=== PATIENT | male | born 1955 ===

== ENCOUNTER 2023-10-01 13:33 | Outpatient (AMB) | payer MEDICARE, SELFPAY ==
--- NOTE | 2023-10-01 13:53 | MHC.PC.OV ---
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 Required: No Allergies No Known Allergies Allergy (Verified 10/01/23 13:54) Medication List - Last Reconciled 10/01/23 by Sita Norton MD folic acid PO hydrocodone-acetaminophen 5-300 mg 1 tab PO TID PRN 28 days lisinopril mg PO methotrexate sodium mg PO Fall risk assessment: No Falls in past year Last assessed Fall Risk: 10/01/23 Dental Screening Dental Screen Date: 10/01/23 Did you have a dental visit in the last 12 months?: No Did you have a dental problem in the last 6 months where you did not have access to dental care?: No Was dental information given to patient?: No (pt declined) HPI HPI Comments History of Present Illness Details The patient is a 68 year old male with a past medical history of psoriatic arthritis, psoriasis, and hypertension presenting for follow up Psoriatic arthritis. Follows with Dr Henriquez. On 10mg methotrexate once weeky (rheum), vicodin (pcp) and aleve prn. He is now retired and enjoying his time. Hypertension: on lisinopril. He denies chest pain, palpitations, increased lower extremity edema Preventive Refuses colonoscopy Refuses immunizations PFSH Medical History (Updated 10/03/23 @ 10:46 by Sita Norton MD) Psoriatic arthritis PMR (polymyalgia rheumatica) Obesity, Class I, BMI 30-34.9 Social History (Updated 10/01/23 @ 13:56 by Sheri Raines CMA) Housing: House Cigarettes Per Day: 1 Years Smoked: 19 e-Cigarette/Vaping Use: Never Used Second Hand Smoke Exposure: No service: No Current occupational status: retired Cognitive needs: No Hearing needs: No Vision needs: Yes (glasses) Questionnaire PHQ-9 Over the last 2 weeks, how often have you been bothered by any of the following problems? 1. Little interest or pleasure in doing things: not at all 2. Feeling down, depressed, or hopeless: not at all 3. Trouble falling or staying asleep, or sleeping too much: more than half the days 4. Feeling tired or having little energy: not at all 5. Poor appetite or overeating: not at all 6. Feeling bad about yourself - or that you are a failure or have let yourself or your family down: not at all 7. Trouble concentrating on things, such as reading the newspaper or watching television: not at all 8. Moving or speaking so slowly that other people could have noticed. Or the opposite - being so fidgety or restless that you have been moving around a lot more than usual: several days 9. Thoughts that you would be better off or of hurting yourself in some way: not at all Total score: 3 Depression Screening Interpretation: Negative (neg) Depression Screening Done: Yes 18169 - PHQ-9 Billing: Yes Source: Developed by Drs. Eric Lew, Nelda Zambrano, Shukri Johnson and colleagues, with an educational cosme from [employer]. Thrive Questionnaire Date Thrive assessed: 10/01/23 I am a: Parent/Caregiver What is your living situation today?: I have a steady place to live Within the past 12 months, did the food you bought not last and you didn't have the money to get more?: Never true Within the past 12 months, did you worry whether your food would run out before you got money to buy more?: Never true Do you have trouble paying for medicines?: No Do you have trouble getting transportation to medical appointments?: No Do you have trouble paying your heating and electricity bill?: No Do you have trouble taking care of your child, family member or friend?: No Do you have trouble with day-to-day activities such as bathing, preparing meals, shopping, managing finances, etc.?: No Are you currently unemployed and looking for a job?: No Are you interested in more education?: No Please select the resources that you would like help with: None Currently or been in a relationship where the following occur: no concerns reported THRIVE Score: 0 AUDIT C Alcohol Use Questionnaire (AUDIT-C) 1. How often do you have a drink containing alcohol?: Never 3. How often do you have six or more drinks on one occasion?: Never Total Score: 0 CLAIRE-7 AMB Questionnaire CLAIRE-7 Date CLAIRE - 7 assessed: 10/01/23 Feeling nervous, anxious, or on edge: 0 = Not at all Not being able to stop or control worryin = Not at all Worrying too much about different things: 0 = Not at all Trouble relaxin = Not at all Being so restless that it is hard to sit still: 0 = Not at all Becoming easily annoyed or irritable: 0 = Not at all Feeling afraid as if something awful might happen: 0 = Not at all Total CLAIRE-7 score (0-4 normal; 5-9 mild; 10-14 moderate; 15-21 severe): 0 Source: Developed by Drs. Eric Lew, Nelda Zambrano, Shukri Johnson and colleagues, with an educational cosme from [employer]. CLAIRE-7 Assessment Billing CLAIRE-7 Assessment Tool: CLAIRE-7 Assessment 36516 Review of Systems Const Details: see HPI Physical exam (Primary Care) Vital Signs: Last Vital Signs Temp 97.1 F 10/01/23 13:57 Pulse 97 10/01/23 13:57 Resp 14 10/01/23 13:57 BP 116/60 10/01/23 13:57 Pulse Ox 97 10/01/23 13:57 Oxygen Delivery Method Room Air 10/01/23 13:57 BMI result Body Mass Index 39.5 Tobacco/Smoking Status: Tobacco use Status e-Cigarette/Vaping Use Never Used 10/01/23 14:03 PHQ-9: PHQ-9 Score PHQ-9: Total score 3 10/01/23 15:40 Depression Screening Interpretation: Negative (neg) Thrive Assessment: Date of Thrive Assessment Date Thrive assessed 10/01/23 10/01/23 14:13 Currently or been in a relationship where the following occur: no concerns reported Const Other: PHYSICAL EXAM: GENERAL: Alert and oriented x 3. NAD EYES: EOMI. Anicteric. HENT: Moist mucous membranes. No scleral icterus. No cervical lymphadenopathy. LUNGS: Clear to auscultation bilaterally. CARDIOVASCULAR: Regular rate and rhythm. No murmur. No JVD. ABDOMEN: Soft, non-tender +bs EXTREMITIES: No edema. Non-tender. SKIN: No rashes or lesions. Warm. NEUROLOGIC: No focal neurological deficits. CN II-XII grossly intact PSYCHIATRIC: Cooperative. Appropriate mood and affect Assessment and Plan Assessment & Plan (1) PMR (polymyalgia rheumatica): Code(s): M35.3 - Polymyalgia rheumatica (2) Psoriatic arthritis: Comment: continue current medications. Continue rheumatology Code(s): L40.50 - Arthropathic psoriasis, unspecified (3) Hypertension: Code(s): I10 - Essential (primary) hypertension Orders: Orders Comprehensive Met. Panel 10/01/23 I10 - Essential (primary) hypertension, L40.50 - Arthropathic psoriasis, unspecified, M35.3 - Polymyalgia rheumatica, Z13.220 - Encounter for screening for lipoid disorders Prostate Specific Antigen 10/01/23 Z12.5 - Encounter for screening for malignant neoplasm of prostate, Z13.220 - Encounter for screening for lipoid disorders Complete Blood Count Auto Diff 10/01/23 I10 - Essential (primary) hypertension, L40.50 - Arthropathic psoriasis, unspecified, M35.3 - Polymyalgia rheumatica, Z13.220 - Encounter for screening for lipoid disorders Lipid Panel 10/01/23 I10 - Essential (primary) hypertension, L40.50 - Arthropathic psoriasis, unspecified, M35.3 - Polymyalgia rheumatica, Z13.220 - Encounter for screening for lipoid disorders Medications: New hydrocodone-acetaminophen 5-300 mg 1 tab PO TID PRN 84 tabs 0RF pain 28 days Coding Level of Care Code Tele Est Pt Level 4 (28440) Complex EM visit Add On G2211 Diagnoses PMR (polymyalgia rheumatica) M35.3 Psoriatic arthritis L40.50 Hypertension I10 Additional Codes CLAIRE-7 Assessment Billing - CLAIRE-7 Assessment Tool: CLAIRE-7 Assessment 04169 ([id number])
[2023-10-01 13:57] VITALS: BP 116/60; PULSE 97; RESP 14; TEMP 36.2; O2SAT 97; BMI 39.5
== END 2023-10-01 14:50 | disposition home or self-care (01) ==
PROVIDERS: PCP Internal Medicine; Visit Provider Internal Medicine
DX: M35.3 Polymyalgia rheumatica (principal); L40.50 Arthropathic psoriasis, unspecified; I10 Essential (primary) hypertension
CPT/HCPCS: 99214; G2211

== ENCOUNTER 2023-10-21 09:11 | Outpatient (REF) | payer MEDICARE, SELFPAY ==
[2023-10-21 11:40] LABS: Alanine Aminotransferase 30 U/L (0-40); Albumin Level 3.9 g/dL (3.5-5.0); Alkaline Phosphatase 57 U/L (39-117); Anion Gap 11 (12-20); Aspartate Amino Transferase 25 U/L (5-37); Bilirubin Total 0.5 mg/dL (0.0-1.0); Blood Urea Nitrogen 25 mg/dL (9-16); Calcium 9.3 mg/dL (8.4-10.2); Carbon Dioxide 25 mmol/L (22-29); Chloride 108 mmol/L (96-108); Cholesterol 235 mg/dL (<200); Estimated Glomerular Filt Rate > 60; Glucose Random 103 mg/dL (60-115); HDL Cholesterol 39 mg/dL (>40); LDL Cholesterol Calculated 175 mg/dL (<100); Potassium 4.2 mmol/L (3.3-5.1); Sodium 140 mmol/L (135-145); Total Protein 7.4 g/dL (6.5-8.0); Triglycerides 106 mg/dL (<150)
[2023-10-21 11:41] LABS: Alanine Aminotransferase 30 U/L (0-40); Albumin Level 3.9 g/dL (3.5-5.0); Alkaline Phosphatase 57 U/L (39-117); Anion Gap 9 (12-20); Aspartate Amino Transferase 25 U/L (5-37); Bilirubin Total 0.5 mg/dL (0.0-1.0); Blood Urea Nitrogen 25 mg/dL (9-16); C Reactive Protein 2.05 mg/dL (< or = 0.50); Calcium 9.3 mg/dL (8.4-10.2); Carbon Dioxide 27 mmol/L (22-29); Chloride 107 mmol/L (96-108); Estimated Glomerular Filt Rate > 60; Glucose Random 103 mg/dL (60-115); Potassium 4.2 mmol/L (3.3-5.1); Sodium 139 mmol/L (135-145); Total Protein 7.2 g/dL (6.5-8.0)
[2023-10-21 11:42] LABS: MANUAL DIFF FLAG NO
[2023-10-21 11:43] LABS: Basophils Percent Auto 0.8 % (0-2); Eosinophils Absolute Auto 0.2 X10*3/uL (0.0-0.4); Eosinophils Percent Auto 3.2 % (0-4); Hemoglobin 12.6 g/dl (14.0-18.0); Imm Gran Abs Auto 0.02 X10*3/uL (0.00-0.03); Imm Gran Pct Auto 0.4 % (0.0-0.4); Lymphocytes Absolute Auto 0.9 X10*3/uL (1.2-4.9); Lymphocytes Percent Auto 19.2 % (20-40); Mean Corpuscular HGB Conc 32.3 g/dl (31.0-36.0); Mean Corpuscular Hemoglobin 30.2 pg (27.0-33.0); Mean Corpuscular Volume 93.5 fL (80.0-98.0); Mean Platelet Volume 10.8 fL (9.4-12.4); Monocytes Absolute Auto 0.5 X10*3/uL (0.1-1.2); Monocytes Percent Auto 9.9 % (2-11); Neutrophils Absolute Auto 3.2 x10*3/uL (2.0-8.3); Neutrophils Percent Auto 66.5 % (45-73); Platelet Count 299 X10*3/uL (160-400); Red Blood Count 4.17 X10*6/uL (4.60-5.80); Red Cell Distribution Width 14.8 % (11.0-16.0); White Blood Count 4.7 X10*3/uL (4.8-10.8)
[2023-10-21 12:00] LABS: Prostate Specific Antigen 0.41 ng/mL (<0.05-4.0)
[2023-10-21 12:42] LABS: Erythrocyte Sedimentation Rate 44 MM/HR (0-15)
== END 2023-10-21 09:12 | disposition home or self-care (01) ==
LOC: HO.WFDLDS 09:11
PROVIDERS: Internal Medicine; Visit Provider Internal Medicine
DX: L40.50 Arthropathic psoriasis, unspecified (principal); M35.3 Polymyalgia rheumatica; I10 Essential (primary) hypertension; Z13.220 Encounter for screening for lipoid disorders; Z12.5 Encounter for screening for malignant neoplasm of prostate
CPT/HCPCS: 36415; 80053; 80061; 84153; 85025; 85652; 86140

== ENCOUNTER → 2024-02-11 15:53 | Outpatient (BNVA) | payer MEDICARE, SELFPAY | PROVIDERS: PCP Internal Medicine; Visit Provider Internal Medicine ==

== ENCOUNTER → 2024-02-11 15:53 | Outpatient (AMB) | payer MEDICARE, SELFPAY ==
--- NOTE | 2024-02-11 15:42 | A.OFFPC_ITS ---
Intake Visit Reasons: Follow Up ~[phone] Intake Note: Follow up Allergies No Known Allergies Allergy (Verified 02/11/24 15:42) Dental Screening Dental Screen Date: 10/01/23 HPI HPI Comments History of Present Illness Details The patient is a 68 year old male with a past medical history of psoriatic arthritis, psoriasis, and hypertension presenting for follow up Psoriatic arthritis. Follows with Dr Henriquez. On 10mg methotrexate once weeky (rheum), vicodin (pcp) and aleve prn. He is now retired and enjoying his time. Essentially had to leave work due to disability Hypertension: on lisinopril. He denies chest pain, palpitations, denies increased lower extremity edema Preventive Refuses colonoscopy Refuses immunizations ROS CONSTITUTIONAL: Denies weight loss, fever and chills. HEENT: Denies changes in vision and hearing. RESPIRATORY: Denies SOB and cough. CV: Denies palpitations and CP GI: Denies abdominal pain, nausea, vomiting and diarrhea. : Denies dysuria and urinary frequency. MSK: Denies new myalgia and joint pain. SKIN: Denies rash and pruritus. NEUROLOGICAL: Denies headache PSYCHIATRIC: Denies recent changes in mood. PHYSICAL EXAM: GENERAL: Alert and oriented x 3. NAD EYES: EOMI. Anicteric. HENT: Moist mucous membranes. No scleral icterus. No cervical lymphadenopathy. LUNGS: Clear to auscultation bilaterally. CARDIOVASCULAR: Regular rate and rhythm. No murmur. No JVD. ABDOMEN: Soft, non-tender +bs EXTREMITIES: No edema. Non-tender. SKIN: No rashes or lesions. Warm. NEUROLOGIC: No focal neurological deficits. CN II-XII grossly intact PSYCHIATRIC: Cooperative. Appropriate mood and affect [facility] Medical History Psoriatic arthritis PMR (polymyalgia rheumatica) Obesity, Class I, BMI 30-34.9 Social History Housing: House Cigarettes Per Day: 1 Years Smoked: 19 Packs per year/per ci.95 e-Cigarette/Vaping Use: Never Used Second Hand Smoke Exposure: No service: No Current occupational status: retired Cognitive needs: No Hearing needs: No Vision needs: Yes (glasses) Questionnaire Thrive Questionnaire Date Thrive assessed: 10/01/23 CLAIRE-7 AMB Questionnaire CLAIRE-7 Date CLAIRE - 7 assessed: 10/01/23 Source: Developed by Drs. Eric Lew, Nelda Zambrano, Shukri Johnson and colleagues, with an educational cosme from [employer]. Physical exam (Primary Care) Tobacco/Smoking Status: Tobacco use Status e-Cigarette/Vaping Use Never Used 02/11/24 15:45 Thrive Assessment: Date of Thrive Assessment Date Thrive assessed 10/01/23 02/11/24 15:45 Telehealth Telehealth Telehealth Platform: Telephone Location of provider rendering services: practice address Location of patient: address on file Patient Identification confirmed using: Name, : Yes Telehealth method: voice only Patient verbally consented to treatment: Yes Patient verbally consented to billing insurance company: Yes Patient informed of any privacy concerns related to visit: Yes Minutes spent on Phone/Video with Pt.: 32 Assessment and Plan Assessment & Plan (1) Psoriatic arthritis: Comment: continue current medications. Continue rheumatology f/up Code(s): L40.50 - Arthropathic psoriasis, unspecified (2) Hypertension: Code(s): I10 - Essential (primary) hypertension Qualifiers: Hypertension type: primary hypertension Qualified Code(s): I10 - Essential (primary) hypertension Plan: stable on current medications Coding Level of Care Code Tele Est Pt Level 4 (41763) Diagnoses Psoriatic arthritis L40.50 Primary hypertension I10 Hypertension type: primary hypertension
== END ==
LOC: HO.HMCFM 15:53
PROVIDERS: PCP Internal Medicine; Visit Provider Internal Medicine
DX: L40.50 Arthropathic psoriasis, unspecified (principal); I10 Essential (primary) hypertension

== ENCOUNTER 2024-05-30 11:05 | Outpatient (REF) | payer MEDICARE, SELFPAY ==
[2024-05-30 12:47] LABS: MANUAL DIFF FLAG NO
[2024-05-30 12:49] LABS: Basophils Percent Auto 0.5 % (0-2); Eosinophils Absolute Auto 0.2 X10*3/uL (0.0-0.4); Eosinophils Percent Auto 2.5 % (0-4); Hematocrit 38.7 % (42.0-52.0); Imm Gran Abs Auto 0.02 X10*3/uL (0.00-0.03); Imm Gran Pct Auto 0.2 % (0.0-0.4); Lymphocytes Percent Auto 11.9 % (20-40); Mean Corpuscular HGB Conc 33.6 g/dl (31.0-36.0); Mean Corpuscular Volume 92.4 fL (80.0-98.0); Mean Platelet Volume 9.5 fL (9.4-12.4); Monocytes Absolute Auto 0.9 X10*3/uL (0.1-1.2); Monocytes Percent Auto 11.2 % (2-11); Neutrophils Absolute Auto 6.2 x10*3/uL (2.0-8.3); Neutrophils Percent Auto 73.7 % (45-73); Platelet Count 310 X10*3/uL (160-400); Red Blood Count 4.19 X10*6/uL (4.60-5.80); Red Cell Distribution Width 15.3 % (11.0-16.0); White Blood Count 8.4 X10*3/uL (4.8-10.8)
[2024-05-30 14:01] LABS: Alanine Aminotransferase 27 U/L (0-40); Alkaline Phosphatase 59 U/L (39-117); Anion Gap 9 (12-20); Aspartate Amino Transferase 26 U/L (5-37); Bilirubin Total 0.6 mg/dL (0.0-1.0); Blood Urea Nitrogen 16 mg/dL (9-16); Carbon Dioxide 28 mmol/L (22-29); Chloride 105 mmol/L (96-108); Cholesterol 240 mg/dL (<200); Estimated Glomerular Filt Rate > 60; Glucose Random 106 mg/dL (60-115); HDL Cholesterol 36 mg/dL (>40); LDL Cholesterol Calculated 163 mg/dL (<100); Potassium 4.6 mmol/L (3.3-5.1); Sodium 137 mmol/L (135-145); Total Protein 7.4 g/dL (6.5-8.0); Triglycerides 209 mg/dL (<150)
[2024-05-30 14:02] LABS: TSH reflex Free T4 1.53 uIU/mL (0.32-4.0)
== END 2024-05-30 11:06 | disposition home or self-care (01) ==
LOC: HO.LAB 11:05
PROVIDERS: PCP Internal Medicine; Visit Provider Internal Medicine
DX: I10 Essential (primary) hypertension (principal); M35.3 Polymyalgia rheumatica; L40.50 Arthropathic psoriasis, unspecified; D64.9 Anemia, unspecified; Z79.899 Other long term (current) drug therapy
CPT/HCPCS: 36415; 80053; 80061; 84443; 85025; 96127; 99212

== ENCOUNTER 2024-05-30 11:05 | Outpatient (AMB) | payer MEDICARE, SELFPAY ==
--- NOTE | 2024-05-30 11:15 | MHC.PC.OV ---
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 Psoriatic arthritis. Follows with Dr Henriquez. On 10mg methotrexate once weeky (rheum), vicodin (pcp) and aleve prn. He is now retired and enjoying his time. Essentially had to leave work due to disability. Hypertension: on lisinopril. Blood pressure is well controlled. He denies chest pain, palpitations, denies increased lower extremity edema Preventive Refuses colonoscopy Refuses immunizations ROS CONSTITUTIONAL: Denies weight loss, fever and chills. HEENT: Denies changes in vision and hearing. RESPIRATORY: Denies SOB and cough. CV: Denies palpitations and CP GI: Denies abdominal pain, nausea, vomiting and diarrhea. : Denies dysuria and urinary frequency. MSK: Denies new myalgia and joint pain. SKIN: Denies rash and pruritus. NEUROLOGICAL: Denies headache PSYCHIATRIC: Denies recent changes in mood. PHYSICAL EXAM: GENERAL: Alert and oriented x 3. NAD EYES: EOMI. Anicteric. HENT: Moist mucous membranes. No scleral icterus. No cervical lymphadenopathy. LUNGS: Clear to auscultation bilaterally. CARDIOVASCULAR: Regular rate and rhythm. No murmur. No JVD. ABDOMEN: Soft, non-tender +bs EXTREMITIES: No edema. Non-tender. SKIN: No rashes or lesions. Warm. NEUROLOGIC: No focal neurological deficits. CN II-XII grossly intact PSYCHIATRIC: Cooperative. Appropriate mood and affect [facility] Medical History Psoriatic arthritis PMR (polymyalgia rheumatica) Obesity, Class I, BMI 30-34.9 Social History Housing: House Alcohol intake: never Patient Tobacco Use Status: Former Tobacco user Cigarettes Per Day: 1 Years Smoked: 19 quit 1987 e-Cigarette/Vaping Use: Never Used Second Hand Smoke Exposure: No service: No Current occupational status: retired Cognitive needs: No Hearing needs: No Vision needs: Yes (glasses) Questionnaire PHQ-9 Over the last 2 weeks, how often have you been bothered by any of the following problems? 1. Little interest or pleasure in doing things: not at all 2. Feeling down, depressed, or hopeless: not at all 3. Trouble falling or staying asleep, or sleeping too much: not at all 4. Feeling tired or having little energy: not at all 5. Poor appetite or overeating: not at all 6. Feeling bad about yourself - or that you are a failure or have let yourself or your family down: not at all 7. Trouble concentrating on things, such as reading the newspaper or watching television: not at all 8. Moving or speaking so slowly that other people could have noticed. Or the opposite - being so fidgety or restless that you have been moving around a lot more than usual: not at all 9. Thoughts that you would be better off or of hurting yourself in some way: not at all Total score: 0 Depression Screening Interpretation: Negative Depression Screening Done: Yes 09189 - PHQ-9 Billing: Yes Source: Developed by Drs. Eric Lew, Nelda Zambrano, Shukri Johnson and colleagues, with an educational cosme from [employer]. Thrive Questionnaire Date Thrive assessed: 05/30/24 I am a: Patient What is your living situation today?: I have a steady place to live Within the past 12 months, did the food you bought not last and you didn't have the money to get more?: I choose not to answer this question Within the past 12 months, did you worry whether your food would run out before you got money to buy more?: I choose not to answer this question Do you have trouble paying for medicines?: I choose not to answer this question Do you have trouble getting transportation to medical appointments?: I choose not to answer this question Do you have trouble paying your heating and electricity bill?: I choose not to answer this question Do you have trouble taking care of your child, family member or friend?: I choose not to answer this question Do you have trouble with day-to-day activities such as bathing, preparing meals, shopping, managing finances, etc.?: I choose not to answer this question Are you currently unemployed and looking for a job?: I choose not to answer this question Are you interested in more education?: I choose not to answer this question Please select the resources that you would like help with: None Currently or been in a relationship where the following occur: I choose not to answer THRIVE Score: 0 AUDIT C Alcohol Use Questionnaire (AUDIT-C) 1. How often do you have a drink containing alcohol?: Never Total Score: 0 CLAIRE-7 AMB Questionnaire CLAIRE-7 Date CLAIRE - 7 assessed: 05/30/24 Feeling nervous, anxious, or on edge: 0 = Not at all Not being able to stop or control worryin = Not at all Worrying too much about different things: 0 = Not at all Trouble relaxin = Not at all Being so restless that it is hard to sit still: 0 = Not at all Becoming easily annoyed or irritable: 0 = Not at all Feeling afraid as if something awful might happen: 0 = Not at all Total CLAIRE-7 score (0-4 normal; 5-9 mild; 10-14 moderate; 15-21 severe): 0 Source: Developed by Drs. Eric Lew, Nelda Zambrano, Shukri Johnson and colleagues, with an educational cosme from [employer]. CLAIRE-7 Assessment Billing CLAIRE-7 Assessment Tool: CLAIRE-7 Assessment 70404 Physical exam (Primary Care) Tobacco/Smoking Status: Tobacco use Status e-Cigarette/Vaping Use Never Used 05/30/24 11:16 PHQ-9: PHQ-9 Score PHQ-9: Total score 0 05/30/24 11:18 Depression Screening Interpretation: Negative Thrive Assessment: Date of Thrive Assessment Date Thrive assessed 05/30/24 05/30/24 11:18 Currently or been in a relationship where the following occur: I choose not to answer Coding Level of Care Code Est Pt Level 4 (30762) Diagnoses Primary hypertension I10 Hypertension type: primary hypertension PMR (polymyalgia rheumatica) M35.3 Screening for hyperlipidemia Z13.220 Additional Codes CLAIRE-7 Assessment Billing - CLAIRE-7 Assessment Tool: CLAIRE-7 Assessment 32970 ([id number]) PHQ-9 - 28441 - PHQ-9 Billing: Yes ([id number]) Assessment & Plan Assessment & Plan (1) Hypertension: Code(s): I10 - Essential (primary) hypertension Category: Medical Qualifiers: Hypertension type: primary hypertension Qualified Code(s): I10 - Essential (primary) hypertension Plan: Well controlled on current medication (2) PMR (polymyalgia rheumatica): Code(s): M35.3 - Polymyalgia rheumatica Category: Medical Plan: Well controlled on pain medications (3) Screening for hyperlipidemia: Code(s): Z13.220 - Encounter for screening for lipoid disorders Category: Medical Plan: Labs ordered Orders: Orders Complete Blood Count Auto Diff Today D64.9 - Anemia, unspecified, I10 - Essential (primary) hypertension, L40.50 - Arthropathic psoriasis, unspecified, Z13.220 - Encounter for screening for lipoid disorders Comprehensive Met. Panel Today D64.9 - Anemia, unspecified, I10 - Essential (primary) hypertension, L40.50 - Arthropathic psoriasis, unspecified, Z13.220 - Encounter for screening for lipoid disorders Lipid Panel Today D64.9 - Anemia, unspecified, I10 - Essential (primary) hypertension, L40.50 - Arthropathic psoriasis, unspecified, Z13.220 - Encounter for screening for lipoid disorders TSH reflex Free T4 Today D64.9 - Anemia, unspecified, I10 - Essential (primary) hypertension, L40.50 - Arthropathic psoriasis, unspecified, Z13.220 - Encounter for screening for lipoid disorders
[2024-05-30 11:25] VITALS: BP 116/72; PULSE 102; O2SAT 94; BMI 41.2
== END 2024-05-30 11:47 | disposition home or self-care (01) ==
PROVIDERS: PCP Internal Medicine; Visit Provider Internal Medicine
DX: I10 Essential (primary) hypertension (principal); M35.3 Polymyalgia rheumatica; Z13.220 Encounter for screening for lipoid disorders

== ENCOUNTER 2024-10-19 11:01 | Outpatient (REF) | payer MEDICARE, SELFPAY ==
[2024-10-19 14:33] LABS: MANUAL DIFF FLAG NO
[2024-10-19 14:47] LABS: Estimated Average Glucose 120 mg/dL; Hemoglobin A1c % 5.8 % (<6.0)
[2024-10-19 14:57] LABS: Basophils Percent Auto 0.6 % (0-2); Eosinophils Absolute Auto 0.2 X10*3/uL (0.0-0.4); Eosinophils Percent Auto 2.3 % (0-4); Hemoglobin 12.5 g/dl (14.0-18.0); Imm Gran Abs Auto 0.02 X10*3/uL (0.00-0.03); Imm Gran Pct Auto 0.3 % (0.0-0.4); Lymphocytes Absolute Auto 0.9 X10*3/uL (1.2-4.9); Lymphocytes Percent Auto 13.9 % (20-40); Mean Corpuscular HGB Conc 32.9 g/dl (31.0-36.0); Mean Corpuscular Hemoglobin 30.5 pg (27.0-33.0); Mean Corpuscular Volume 92.7 fL (80.0-98.0); Mean Platelet Volume 10.5 fL (9.4-12.4); Monocytes Absolute Auto 0.8 X10*3/uL (0.1-1.2); Monocytes Percent Auto 12.2 % (2-11); Neutrophils Absolute Auto 4.5 x10*3/uL (2.0-8.3); Neutrophils Percent Auto 70.7 % (45-73); Platelet Count 313 X10*3/uL (160-400); Red Cell Distribution Width 15.4 % (11.0-16.0); White Blood Count 6.4 X10*3/uL (4.8-10.8)
[2024-10-19 15:06] LABS: Alanine Aminotransferase 30 U/L (0-40); Alkaline Phosphatase 53 U/L (39-117); Anion Gap 10 (12-20); Aspartate Amino Transferase 28 U/L (5-37); Bilirubin Total 0.5 mg/dL (0.0-1.0); Blood Urea Nitrogen 21 mg/dL (9-16); C Reactive Protein 1.81 mg/dL (< or = 0.50); Calcium 9.7 mg/dL (8.4-10.2); Carbon Dioxide 27 mmol/L (22-29); Chloride 107 mmol/L (96-108); Estimated Glomerular Filt Rate > 60; Glucose Random 100 mg/dL (60-115); Sodium 140 mmol/L (135-145); Total Protein 7.2 g/dL (6.5-8.0)
[2024-10-19 15:08] LABS: Cholesterol 241 mg/dL (<200); HDL Cholesterol 38 mg/dL (>40); LDL Cholesterol Calculated 175 mg/dL (<100); Triglycerides 144 mg/dL (<150)
[2024-10-19 15:23] LABS: Folate 14.2 ng/mL (> or = 4.0); Prostate Specific Antigen 0.47 ng/mL (<0.05-4.0); Vitamin B12 770 pg/mL (200-900)
[2024-10-19 15:35] LABS: Erythrocyte Sedimentation Rate 43 MM/HR (0-15)
== END 2024-10-19 11:02 | disposition home or self-care (01) ==
LOC: HO.HKASLDS 11:01
PROVIDERS: PCP Internal Medicine; Visit Provider Internal Medicine Rheumatology
DX: M35.3 Polymyalgia rheumatica (principal); D64.9 Anemia, unspecified; Z13.220 Encounter for screening for lipoid disorders; I10 Essential (primary) hypertension; L40.50 Arthropathic psoriasis, unspecified; Z79.631 Long term (current) use of antimetabolite agent; Z12.5 Encounter for screening for malignant neoplasm of prostate; Z13.1 Encounter for screening for diabetes mellitus
CPT/HCPCS: 36415; 80053; 80061; 82607; 82746; 83036; 84153; 85025; 85652; 86140

== ENCOUNTER 2024-10-19 11:43 | Outpatient (REF) | payer MEDICARE, SELFPAY | END 2024-10-19 11:44 | disposition home or self-care (01) | LOC: HO.WFDLDS 11:43 | PROVIDERS: Visit Provider Internal Medicine | DX: Z13.89 Encounter for screening for other disorder (principal) ==

== ENCOUNTER 2024-11-28 11:03 | Outpatient (AMB) | payer MEDICARE, SELFPAY ==
--- NOTE | 2024-11-28 11:20 | AM.OFFVISMDC ---
Intake Vital Signs 11/28/24 11:33 Height 5 ft 6.14 in Weight 258 lb 8 oz BMI 41.5 BP 132/76 Blood Pressure Location Rt brachial Position Sitting Respiration 14 Pulse 85 Pulse Source Pulse Oximeter Temp 98 F Temp Source Oral Pulse Oximetry (%) 97 Oxygen Delivery Method Room Air Intake Visit Reasons: awv Intake Note: Medicare annual wellness Income Tax Auditor Required: No Allergies No Known Allergies Allergy (Verified 11/28/24 11:23) HPI HPI Comments History of Present Illness Details The patient is a 68 year old male with a past medical history of psoriatic arthritis, psoriasis, and hypertension presenting for [facility] Psoriatic arthritis. 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 On 10mg methotrexate once weeky (rheum), vicodin (pcp) and aleve prn. He is now retired and enjoying his time. Essentially had to leave work due to disability. Daughter getting in February Hypertension: on lisinopril. Blood pressure is well controlled. He denies chest pain, palpitations, denies increased lower extremity edema He has a large left cervical lymph node/mass. He has poor dentition but denies acute dental pain, recent illness Preventive Refuses colonoscopy Refuses immunizations ROS CONSTITUTIONAL: Denies weight loss, fever and chills. HEENT: Denies changes in vision and hearing. RESPIRATORY: Denies SOB and cough. CV: Denies palpitations and CP GI: Denies abdominal pain, nausea, vomiting and diarrhea. : Denies dysuria and urinary frequency. MSK: Denies new myalgia and joint pain. SKIN: Denies rash and pruritus. NEUROLOGICAL: Denies headache PSYCHIATRIC: Denies recent changes in mood. PHYSICAL EXAM: GENERAL: Alert and oriented x 3. NAD EYES: EOMI. Anicteric. HENT: Moist mucous membranes. No scleral icterus. large left cervical mass LUNGS: Clear to auscultation bilaterally. CARDIOVASCULAR: Regular rate and rhythm. No murmur. No JVD. ABDOMEN: Soft, non-tender +bs EXTREMITIES: No edema. Non-tender. SKIN: No rashes or lesions. Warm. NEUROLOGIC: No focal neurological deficits. CN II-XII grossly intact PSYCHIATRIC: Cooperative. Appropriate mood and affect [facility] Medical History Psoriatic arthritis PMR (polymyalgia rheumatica) Obesity, Class I, BMI 30-34.9 Social History Housing: House Alcohol intake: never Patient Tobacco Use Status: Former Tobacco user Cigarettes Per Day: 1 Years Smoked: 19 quit 1987 e-Cigarette/Vaping Use: Never Used Second Hand Smoke Exposure: No service: No Current occupational status: retired Cognitive needs: No Hearing needs: No Vision needs: Yes (glasses) Questionnaire Medicare Wellness Checkup What [age] 65-71 What gender do you identify with?: male During the past 4 weeks, how much have you been bothered by emotional problems such as feeling anxious, depressed, irritable, sad or downhearted, and blue?: not at all During the past 4 weeks, has your physical & emotional health limited your social activities with family, friends, neighbors, or groups?: not at all During the past 4 weeks, how much bodily pain have you generally had?: mild pain During the past 4 weeks, was someone available to help you if you needed & wanted help?: yes, as much as I wanted Can you get to places out of walking distance without help? (For eg., can you travel alone on buses, taxis or drive your car?): Yes Can you go shopping for groceries or clothes without someone's help?: Yes Can you prepare your own meals?: Yes Can you do your housework without help?: No Because of any health problems, do you need the help of another person with your personal care needs such as eating, bathing, dressing or getting around the house?: No Can you handle your own money without help?: Yes During the past 4 weeks, how would you rate your health in general?: good During the past 4 weeks how have things been going for you?: pretty well Are you having difficulties driving your car?: no Do you always fasten your seat belt when you are in a car?: yes, usually During past 4 weeks, have you been bothered by the following: never: Falling or dizzy when standing up, Sexual problems?, Trouble eating well?, Teeth or denture problems? and Problems using the telephone? and seldom: Tiredness or fatigue? Have you fallen 2 or more times in the past year?: No Are you a smoker?: no During the past 4 weeks, how many drinks of wine, beer, or other alcoholic beverages did you have?: no alcohol at all Do you exercise for about 20 minutes 3 or more times a week?: no, I usually do not exercise this much Have you been given information to help with the following?: yes: Keeping track of your medications? and no: Hazards in your house that might hurt you? How often do you have trouble taking medicines the way you have been told to take them?: I always take medicine as prescribed How confident are you that you can control & manage most of your health problems?: very confident What is your race?: Other (declined to answer) Mini Mental State Exam (MMSE) Orientation What is the (year) (season) (date) (day) (month)?: year (2024), season (summer), date (11/28/2024), day and month Where are we (state) (county) (town or city) (hospital) (floor)?: state ([place]), county ([place]), town or city ([place]), hospital/clinic ([facility]) and floor (ground floor) Registration Name of 3 unrelated objects clearly and slowly, then ask patient to repeat all 3 of them. (1st repeat determines score. Make sure they can repeat all three): object 1 (Ball ), object 2 (flag) and object 3 (tree) Attention & Calculation (CHOOSE ONE) Ask pt to begin with 100 & count backward by 7. Stop after 5 repeats. If pt cannot ask them to spell the word WORLD backward.: 93, 86, 79, 72 and 65 Spell WORLD backwards (DLROW): 5 letters Recall Ask patient to repeat the 3 items from question #3.: object 1 (ball), object 2 (flag) and object 3 (tree) Language Show patient a wristwatch & ask what it is. Repeat for pencil.: watch and pencil Ask the patient to repeat the phrase 'No ifs, ands, or buts' after you.: correct Ask the patient to 'take a piece of paper with their right hand' 'fold paper in half' 'place paper on floor': take paper in right hand, fold paper in half and place paper on floor Print the sentence 'CLOSE YOUR EYES' on a piece. If patient actually closes eyes then score.: followed written direction Give patient a blank piece of paper & ask to write a sentence. Score if it contains a noun & verb.: sentence contains subject and verb Ask patient to copy figure of intersecting pentagons exactly. Score if all 10 angles & 2 intersects are included.: all 10 angles present & 2 are intersected Score Score: 35 Activity of Daily Living Bathing - sponge bath, tub bath or shower: receives no assistance (gets in/out by self, if usual bathing means Dressing - getting clothes from closets & drawers, including inner/outer garments & fasteners.: gets clothes & gets completely dressed without help Toileting - going to the 'toilet room' for urine/bowel elimination & cleaning self/arranging clothes: goes to toilet room, cleans self, arranges clothes without help Transfer: moves in & out of bed and chair without help (may use support object) Continence: controls urination/bowel movements completely by self Feeding: feeds self without help Total Score: 0 Information obtained from: patient Using telephone: independent Traveling: independent Shopping: independent Preparing meals: independent Housework: needs assistance Taking medicine: independent Managing money: independent PHQ-9 Over the last 2 weeks, how often have you been bothered by any of the following problems? 1. Little interest or pleasure in doing things: not at all 2. Feeling down, depressed, or hopeless: not at all 3. Trouble falling or staying asleep, or sleeping too much: not at all 4. Feeling tired or having little energy: several days 5. Poor appetite or overeating: not at all 6. Feeling bad about yourself - or that you are a failure or have let yourself or your family down: not at all 7. Trouble concentrating on things, such as reading the newspaper or watching television: not at all 8. Moving or speaking so slowly that other people could have noticed. Or the opposite - being so fidgety or restless that you have been moving around a lot more than usual: not at all 9. Thoughts that you would be better off or of hurting yourself in some way: not at all Total score: 1 Depression Screening Interpretation: Negative Depression Screening Done: Yes 74841 - PHQ-9 Billing: Yes Source: Developed by Drs. Eric Lew, Nelda Zambrano, Shukri Johnson and colleagues, with an educational cosme from [employer]. Physical Exam Vital Signs: Last Vital Signs Temp 98 F 11/28/24 11:33 Pulse 85 11/28/24 11:33 Resp 14 11/28/24 11:33 BP 132/76 11/28/24 11:33 Pulse Ox 97 11/28/24 11:33 Oxygen Delivery Method Room Air 11/28/24 11:33 BMI result Body Mass Index 41.5 Assessment & Plan Assessment & Plan (1) Medicare annual wellness visit, subsequent: Code(s): Z00.00 - Encounter for general adult medical examination without abnormal findings (2) Psoriatic arthritis: Comment: continue current medications. Continue rheumatology f/up Code(s): L40.50 - Arthropathic psoriasis, unspecified (3) PMR (polymyalgia rheumatica): Code(s): M35.3 - Polymyalgia rheumatica Plan 69 year old male for [facility] psoriatic arthritis is stable. history of pmr. continues mtx cervical LN-us ordered. labs reviewed Orders: Orders Lipid Panel 11/28/24 E78.5 - Hyperlipidemia, unspecified US soft tiss head and/or neck 11/28/24 R59.0 - Localized enlarged lymph nodes Quality Reporting (2019) Depression/Bipolar (159/160/161/177) PHQ-9: Total score: 1 Coding Level of Care Code Medicare Subsequent (G0439) Diagnoses Medicare annual wellness visit, subsequent Z00.00 Psoriatic arthritis L40.50 PMR (polymyalgia rheumatica) M35.3 Additional Codes PHQ-9 - 40850 - PHQ-9 Billing: Yes ([id number])
[2024-11-28 11:33] VITALS: BP 132/76; PULSE 85; RESP 14; TEMP 36.6; O2SAT 97; BMI 41.5
== END 2024-11-28 11:59 | disposition home or self-care (01) ==
LOC: HO.HMCFM 11:04
PROVIDERS: PCP Internal Medicine; Visit Provider Internal Medicine
DX: Z00.00 Encounter for general adult medical examination without abnormal findings (principal); L40.50 Arthropathic psoriasis, unspecified; M35.3 Polymyalgia rheumatica

== ENCOUNTER → 2024-11-28 11:03 | Outpatient (BNVA) | payer MEDICARE, SELFPAY | PROVIDERS: PCP Internal Medicine; Visit Provider Internal Medicine | DX: Z00.00 Encounter for general adult medical examination without abnormal findings (principal); L40.50 Arthropathic psoriasis, unspecified; M35.3 Polymyalgia rheumatica | CPT/HCPCS: 96127 ==

== ENCOUNTER 2025-01-11 13:01 | Outpatient (REF) | payer MEDICARE, SELFPAY ==
--- NOTE | ~2025-01-11 | US_ITS ---
EXAMINATION: US HEAD NECK SOFT TISSUE HISTORY: R59.0 - Localized enlarged lymph nodes COMPARISON: There are no prior studies available for comparison. FINDINGS: Sonographic examination of the submandibular regions of the neck was performed. On the left, there is an enlarged abnormal-appearing lymph node measuring 3.2 x 3.0 x 3.1 cm. There is no discernible fatty hilum. An adjacent 1.1 x 0.9 x 0.8 cm rounded lymph node is also noted. On the right, there is a 0.9 x 0.8 x 1.3 cm hypoechoic lesion of the submandibular gland which may represent a mass or lymph node. US/US soft tiss head and/or neck IMPRESSION: 1. Abnormal 3.2 x 3.0 x 3.1 cm left submandibular lymph node. Probable adjacent smaller node. 2. 0.9 x 0.8 x 1.3 cm lesion of the right submandibular gland which may represent a submandibular lesion or lymph node. 3. Fine-needle aspiration of the enlarged left submandibular lymph node is recommended. 4. Findings were sent to Dr. Norton by secure text message on 01/11/2025 at 2:09 PM. Electronically signed by: Eric Oretga MD 01/11/2025 02:12 PM EDT
--- OUTSIDE RECORDS SUMMARY | 2025-01-11 13:38 | XMS_ITS | Encounter Summary ---
Author Organization [facility] Address [address] [facility] [address] [place] [id number] Phone Care Team Providers Care Action Finisher Name Role Phone Sita Cisneros MD Primary Care Provider + [phone] Reason for Visit * Reason Onset Date Comments Results 11/01/2024 Encounter Details Date Type Department Care Team ([facility] Contact Info) Description 11/01/2024 Telephone [facility] Pulmonary, Allergy and Critical Care Medicine [address] [place] [address] Rena Results Social History Tobacco Use Types Packs/Day Years Used Date Smoking Tobacco: Former Cigarettes Q uit: 1998 Smokeless Tobacco: Never Alcohol Use Standard Drinks/Week Comments Not Currently 0 (1 standard drink = 0.6 oz pur e alcohol) Education Answer Date Recorded Are you interested in more education? Not on norman e 12/22/2022 Are you concerned about learning? Not on file 12/22/2022 No 12/22/2022 No 12/22/2022 Digital Access Answer Date Recorded No 12/22/2022 No 12/22/2022 Reliable internet access at home? Not on file 12/22/2022 Device with a working camera? Not on file Sex and Gender Information Value Date Recorded Sex Assigned at Not on file Legal Sex Male 10:12 AM EDT Gender Identity Not on file Sexual Orientation Not on file documented as of this encounter Progress Notes * Estefany Mayen RN - 11/01/2024 4:31 PM EDT Patient notified. * Tricia Katz MD, MPH - 11/01/2024 4:20 PM EDT Pls advise pt labs showed very mild anemia and somewhat elevated sed rate of 43; no evidence of methotrexate toxicity. He should f/u with PCP re: non-rheum lab results. Methotrexate refilled, ty * Karmen Harris CMA - 11/01/2024 3:25 PM EDT Medication Refill To covering provider Last office visit: 09/29/2024 Next office visit: 01/23/2025 Outside labs 10/19/2024 * Rena Jones - 11/01/2024 2:25 PM EDT Patient called requesting the results of his recent labs and a prescription for methotrexate. Please contact and advise. Central Support Inspector Wreath (Please do not reply to this user; this inbox is not monitored.) Thank you. documented in this encounter Plan of Treatment Upcoming Encounters Date Type Department Care Team (Late st Contact Info) Description 01/23/2025 1:00 PM EDT Office Visit [facility] Rheumatology [address] [place] [id number] Claudia Nguyen MD [address] [place] [address] documented as of this encounter Visit Diagnoses Diagnosis Psoriatic arthritis- Primary Psoriatic arthropathy documented in this encounter Care Teams Action Finisher Relationship Specialty Start Date End Date Sita Cisneros MD PCP - General Internal Medicine 12/22/22 documented as of this encounter Additional Source Comments The information contained in this document represents components of the legal health record. It is not the complete legal health record.[facility]
--- OUTSIDE RECORDS SUMMARY | 2025-01-11 13:38 | XMS_ITS | Clinical Summary ---
Author Organization [facility] Address [address] [address] Phone Care Team Providers Care Director Of Occupational Therapy Name Role Phone Sita Cisneros MD Primary Care Provider + [phone] Allergies No known active allergies Medications lisinopril (PRINIVIL,ZESTR IL) 10 MG tablet Take 10 mg by mouth daily. Active clobetasol (TEMOVATE) 0.05 % ointment Apply topically as needed. Active naproxen sodium (ALEVE) 220 MG tablet Take 220 mg by mouth 2 (two) times a day as needed. Active HYDROcodone-beatriz taminophen (XODOL) 5-300 mg per tablet Take 1 tablet by mouth every 8 (eight) hours as needed. Active folic acid (FOLVITE) 1 MG tablet Take 1 tablet (1 mg total) by mouth daily. 90 tablet 3 5 Active methotrexate 2.5 MG Oral tabletIndicatio ns:Psoriatic arthritis Take 10 tablets (25 mg total) by mouth once a week. 120 tablet 5 Active Active Problems Problem Noted Date Diagnosed Date Psoriatic arthritis 02/23/2023 Assessment & Plan (10/24/2023 3:56 PM EDT): Psoriatic arthritis currently on treatment with methotrexate 10 tabs weekly with a daily folic acid. He has active synovitis and skin disease but does not want to take a biologic medication. He says he is otherwise quite functional. He had blood work drawn this morning at [facility] which we will try and retrieve. Assessment & Plan (03/10/2023 1:13 PM EDT): Psoriatic arthritis not optimally controlled with chronic active synovitis, swelling and plaque psoriasis. He wants to continue only with methotrexate and folic acid. He does not want to take a biologic medication. Sent him for baseline labs which he will do at [facility]. Primary osteoarthritis involving multiple joints 02/23/2023 Assessment & Plan (10/24/2023 3:55 PM EDT): Osteoarthritis of multiple joints for which she takes Vicodin as needed from his primary provider Dr. Norton as well as naproxen as needed. Assessment & Plan (03/10/2023 1:15 PM EDT): Degenerative osteoarthritis in multiple areas along with chronic severe joint deformities secondary to psoriatic arthritis. Despite the joint damage she does relatively well. He is however unable to do lifting and repetitive activities and is therefore unable to work. Continue with Aleve as needed as well as Vicodin from Dr. Norton. Encounters Date Type Department Care Team Description 11/01/2024 Telephone [facility] Pulmonary, Allergy and Critical Care Medicine [address] [place] [address] Rena Jones Results 10/26/2024 Orders Only [facility] Rheumatology [address] [place] [address] [place] [id number] Deisi Dyer MA Psoriatic arthritis; Methotrexate, longterm, current use 10/12/2024 Refill [facility] Rheumatology [address] [place] [address] [place] [id number] Jim Henriquez MD Medication Refill from Last 3 Months Family History Medical History Relation Comments No Known Problems Brother No Known Problems Daughter Hypertension Mother Relation Status Comments Brother Daughter Father Mother Social History Tobacco Use Types Packs/Day Years Used Date Smoking Tobacco: Former Cigarettes Q uit: 1997 Smokeless Tobacco: Never Alcohol Use Standard Drinks/Week [...] on file Sexual Orientation Not on file Last Filed Vital Signs Vital Sign Reading Time Taken Comments Blood Pressure 122/82 09/29/2024 1:00 PM EDT Pulse 87 09/29/2024 1:00 PM EDT Temperature - - Respiratory Rate - - Oxygen Saturation 97% 09/29/2024 1:00 PM EDT Inhaled Oxygen Concentration - - Weight 116.1 kg (256 lb) 09/29/2024 1:00 PM EDT Height 170.2 cm (5' 7 ) 10/21/2023 10:53 AM EDT Body Mass Index 40.1 10/21/2023 10:53 AM EDT Plan of Treatment Upcoming Encounters Date Type Department Care Team (Late st Contact Info) Description 01/23/2025 1:00 PM EDT Office Visit [facility] Rheumatology [address] [place] [phone] Claudia Nguyen MD [address] [place] [phone] [email or web address] Health Maintenance Due Date Last Done Comments Adult Td,Tdap Booster 1957 LIPID PANEL 1957 POTASSIUM LEVEL 1957 COVID-19 VACCINE (#1) 1962 DEPRESSION SCREENING 1969 HEPATITIS C SCREENING 08/12/1975 PNEUMOCOCCAL VACCINES (50+ y ears) (1 of 2 - PCV) 1976 ZOSTER VACCINES (1 of 2) 1976 SCREENING FOR DIABETES 1992 COLOGUARD 2002 COLONOSCOPY 2002 COLORECTAL CANCER SCREENING 2002 FIT TEST 2002 FOBT 2002 SIGMOIDOSCOPY 2002 VIRTUAL COLONOSCOPY 2002 RSV VACCINE (1 - Risk 60-74 years 1-dose series) 2017 ABDOMINAL AORTIC ANEURYSM (A AA) SCREENING 2022 SMOKING Hx and SMOKELESS TOB ACCO SCREENING 09/29/2025 09/29/2024 CREATININE LEVEL 10/19/2025 10/19/2024 HEPATITIS A VACCINES Aged Out No long er eligible based on patient's age to complete this topic HIB VACCINES Aged Out No longer eligi ble based on patient's age to complete this topic MENINGOCOCCAL VACCINES (ACWY) Aged Out No longer eligible based on patient's age to complete this topic MENINGOCOCCAL VACCINES (B) Aged Out N o longer eligible based on patient's age to complete this topic Medical Devices Not on file Procedures Procedure Name Priority Date/Time Associated Diagnosis Comments SEDIMENTATION RATE (ESR) Routine 10/19/2024 5:21 PM EDT Psoriatic arthritis Methotrexate, longterm, current use C-REACTIVE PROTEIN Routine 10/19/2024 5: 21 PM EDT Psoriatic arthritis Methotrexate, longterm, current use CBC Routine 10/19/2024 5:21 PM EDT Psoriatic arthritis Methotrexate, salvage determiner, current use COMPREHENSIVE METABOLIC PANEL Routine 10/19/2024 5:21 PM EDT Psoriatic arthritis Methotrexate, longterm, current use from Last 3 Months Results * Sedimentation rate (ESR) (10/19/2024 5:21 PM EDT) Blood Claudia Nguyen MD LAB BLOOD ORDERABLES Final Res ult Performing Organization Address [facility] Co de Phone Number EXTERNAL NON-INTERFACED REF LAB * C-Reactive Protein (10/19/2024 5:21 PM EDT) Blood Claudia Nguyen MD LAB BLOOD ORDERABLES Final Res ult Performing Organization Address City/[facility]/ZIP Co de Phone Number EXTERNAL NON-INTERFACED REF LAB * CBC (10/19/2024 5:21 PM EDT) Blood Claudia Nguyen MD LAB BLOOD ORDERABLES Final Res ult Performing Organization Address City/[facility]/ZIP Co de Phone Number EXTERNAL NON-INTERFACED REF LAB * Comprehensive metabolic panel (10/19/2024 5:21 PM EDT) Blood Claudia Nguyen MD LAB BLOOD ORDERABLES Final Res ult EXTERNAL NON-INTERFACED REF LAB from Last 3 Months Insurance MEDICARE PART A & B [facility] MEDICARE SUPPLEMENT MEDICARE PART A & B [facility] MEDICARE SUPPLEMENT MEDICARE PART A & B [facility] MEDICARE SUPPLEMENT MEDICARE PART A & B MEDICARE SUPPLEMENT MEDICARE PART A & [place] [address] [place] [address] MEDICARE SUPPLEMENT MEDICARE PART A & B [facility] MEDICARE SUPPLEMENT Care Teams Director Of Occupational Therapy Relationship Specialty Start Date End Date Sita Cisneros MD PCP - General Internal Medicine 12/22/22 Additional Source Comments The information contained in this document represents components of the legal health record. It is not the complete legal health record.[facility]
== END 2025-01-11 13:02 | disposition home or self-care (01) ==
LOC: HO.US 13:01
PROVIDERS: PCP Internal Medicine; Visit Provider Internal Medicine
DX: R59.0 Localized enlarged lymph nodes (principal)
CPT/HCPCS: 76536

== ENCOUNTER → 2025-01-11 13:04 | Outpatient (BNV) | payer MEDICARE, SELFPAY | PROVIDERS: PCP Internal Medicine; Visit Provider Radiology Diagnostic Radiology | DX: R59.0 Localized enlarged lymph nodes (principal) | CPT/HCPCS: 76536 ==

== ENCOUNTER → 2025-02-02 15:43 | Outpatient (AMB) | payer MEDICARE, SELFPAY ==
--- NOTE | 2025-02-02 15:39 | A.OFFPC_ITS ---
Intake Visit Reasons: abnormal test questions Allergies No Known Allergies Allergy (Verified 02/02/25 15:40) Tobacco use date assessed: 02/02/25 Dental Screening Dental Screen Date: 02/02/25 Did you have a dental visit in the last 12 months?: No Did you have a dental problem in the last 6 months where you did not have access to dental care?: No Was dental information given to patient?: Patient has dentist HPI HPI Comments History of Present Illness Details The patient is a 68 year old male with a past medical history of psoriatic arthritis, psoriasis, and hypertension presenting for imaging review Last visit for [facility] noted left neck mass. Patient had ultrasound performed with recommendation for FNA of abnormal appearing left submandibular LN. We discussed that this will be ordered today Psoriatic arthritis. 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 On 10mg methotrexate once weeky (rheum), vicodin (pcp) and aleve prn. He is now retired and enjoying his time. Essentially had to leave work due to disability. Daughter getting in February Hypertension: on lisinopril. Blood pressure is well controlled. He denies chest pain, palpitations, denies increased lower extremity edema Preventive Refuses colonoscopy Refuses immunizations ROS see HPI PHYSICAL EXAM: Telehealth [facility] Medical History Psoriatic arthritis PMR (polymyalgia rheumatica) Obesity, Class I, BMI 30-34.9 Social History (Updated 02/02/25 @ 15:42 by Sandra Alcantar CMA) Housing: House Alcohol intake: never Patient Tobacco Use Status: Former Tobacco user Cigarettes Per Day: 1 Years Smoked: 19 quit 1987 e-Cigarette/Vaping Use: Never Used Second Hand Smoke Exposure: No service: No Current occupational status: retired Cognitive needs: No Hearing needs: No Vision needs: Yes (glasses) Questionnaire Thrive Questionnaire Date Thrive assessed: 05/30/24 I am a: Patient What is your living situation today?: I have a steady place to live Within the past 12 months, did the food you bought not last and you didn't have the money to get more?: I choose not to answer this question Within the past 12 months, did you worry whether your food would run out before you got money to buy more?: I choose not to answer this question Do you have trouble paying for medicines?: I choose not to answer this question Do you have trouble getting transportation to medical appointments?: I choose not to answer this question Do you have trouble paying your heating and electricity bill?: I choose not to answer this question Do you have trouble taking care of your child, family member or friend?: I choose not to answer this question Do you have trouble with day-to-day activities such as bathing, preparing meals, shopping, managing finances, etc.?: I choose not to answer this question Are you currently unemployed and looking for a job?: I choose not to answer this question Are you interested in more education?: I choose not to answer this question Please select the resources that you would like help with: None Currently or been in a relationship where the following occur: I choose not to answer THRIVE Score: 0 CLAIRE-7 AMB Questionnaire CLAIRE-7 Date CLAIRE - 7 assessed: 05/30/24 Source: Developed by Drs. Eric Lew, Nelda Zambrano, Shukri Johnson and colleagues, with an educational cosme from [employer]. Physical exam (Primary Care) Tobacco/Smoking Status: Tobacco use Status Tobacco use date assessed 02/02/25 02/02/25 15:42 Patient Tobacco Use Status Former Tobacco user 02/02/25 15:42 e-Cigarette/Vaping Use Never Used 02/02/25 15:42 Thrive Assessment: Date of Thrive Assessment Date Thrive assessed 05/30/24 02/02/25 15:42 Currently or been in a relationship where the following occur: I choose not to answer Telehealth Telehealth Telehealth Platform: Telephone Location of provider rendering services: practice address Location of patient: address on file Patient Identification confirmed using: Name, : Yes Telehealth method: voice only Patient verbally consented to treatment: Yes Patient verbally consented to billing insurance company: Yes Patient informed of any privacy concerns related to visit: Yes Minutes spent on Phone/Video with Pt.: 25 Coding Level of Care Code Tele Est Pt Level 3 (95376) Complex EM visit Add On G2211 Diagnoses Neck mass R22.1 Cervical lymphadenopathy R59.0 Assessment & Plan Assessment & Plan (1) Neck mass: Code(s): R22.1 - Localized swelling, mass and lump, neck Category: Medical (2) Cervical lymphadenopathy: Code(s): R59.0 - Localized enlarged lymph nodes Category: Medical Plan Neck mass u/s ordered FNA ordered Orders: Orders Pathologist Review - CBC 02/02/25 R59.0 - Localized enlarged lymph nodes CT guided FNA add lesion 02/02/25 R59.0 - Localized enlarged lymph nodes Complete Blood Count Auto Diff 02/02/25 R59.0 - Localized enlarged lymph nodes
--- OUTSIDE RECORDS SUMMARY | 2025-02-02 15:45 | XMS_ITS | Encounter Summary ---
Author Organization [facility] Address [address] [facility] [address] [place] [address] Phone Care Team Providers Care Manager Energy Name Role Phone Sita Cisneros MD Primary Care Provider + [phone] Reason for Visit * Reason Onset Date Comments Results 11/01/2024 Encounter Details Date Type Department Care Team ([facility] Contact Info) Description 11/01/2024 Telephone [facility] Pulmonary, Allergy and Critical Care Medicine [address] [place] [address] Rena Results Social History Tobacco Use Types [...] methotrexate. Please contact and advise. 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 documented in this encounter Plan of Treatment Not on file documented as of this encounter Visit Diagnoses Diagnosis Psoriatic arthritis- Primary Psoriatic arthropathy documented in this encounter Care Teams Manager Energy Relationship Specialty Start Date End Date Sita Cisneros MD PCP - General Internal Medicine 12/22/22 documented as of this encounter Additional Source Comments The information contained in this document represents components of the legal health record. It is not the complete legal health record.[facility]
--- OUTSIDE RECORDS SUMMARY | 2025-02-02 15:45 | XMS_ITS | Encounter Summary ---
Author Organization [facility] Address [address] [facility] [address] [place] [address] Phone Care Team Providers Care Notch Grinder Name Role Phone Sita Cisneros MD Primary Care Provider + [phone] Reason for Visit * Reason Onset Date Comments Appointment 01/25/2025 Encounter Details Date Type Department Care Team ([facility] st Contact Info) Description 01/25/2025 Telephone [facility] Rheumatology [address] [place] [address] Unknown, Unknown, MD Appointment Social History Tobacco Use Types Packs/Day Years [...] as of this encounter Progress Notes * Ilda Winchester - 02/01/2025 3:05 PM EDT Return in about 3 months (around 04/24/2025) for Recheck. * Lina Mccain - 01/25/2025 8:22 AM EDT Return in about 3 months (around 04/24/2025) for Recheck. The patient will need to be scheduled with a new provider when their schedules allow. documented in this encounter Plan of Treatment Not on file documented as of this encounter Visit Diagnoses Not on filedocumented in this encounter Care Teams Notch Grinder Relationship Specialty Start Date End Date Sita Cisneros MD PCP - General Internal Medicine 12/22/22 documented as of this encounter Additional Source Comments The information contained in this document represents components of the legal health record. It is not the complete legal health record.[facility]
--- OUTSIDE RECORDS SUMMARY | 2025-02-02 15:45 | XMS_ITS | Clinical Summary ---
Author Organization [facility] Address [address] [address] Phone Care Team Providers Care Planer Stone Name Role Phone Sita Cisneros MD Primary Care Provider + [phone] Allergies No known active allergies Medications lisinopril [...] mg total) by mouth once a week. 130 tablet 1 5 Active methotrexate 2.5 MG Oral tabletIndicatio ns:Psoriatic arthritis Take 10 tablets (25 mg total) by mouth once a week. 120 tablet 5 01/24/20 25 Discontinu ed(Reorder ) Active Problems Problem Noted Date Diagnosed Date Psoriatic arthritis 02/23/2023 Assessment & Plan (10/24/2023 3:56 PM EDT): Psoriatic arthritis currently on treatment with methotrexate 10 tabs weekly with a daily folic acid. He has active synovitis and skin disease but does not want to take a biologic medication. He says he is otherwise quite functional. He had blood work drawn this morning at [facility] which we will try and retrieve. Assessment & Plan (03/10/2023 1:13 PM EDT): Psoriatic arthritis not optimally controlled with chronic active synovitis, swelling and plaque psoriasis. He wants to continue only with methotrexate and folic acid. He does not want to take a biologic medication. Sent him for baseline labs which he will do at [facility]. Primary osteoarthritis involving multiple joints [...] Encounters Date Type Department Care Team Description 01/25/2025 Telephone [facility] Rheumatology [address] [place] [address] [place] [id number] Unknown, Unknown, Appointment 01/23/2025 1:00 PM EDT Office Visit [facility] Rheumatology [address] [place] [address] [place] [address] Claudia Nguyen MD Psoriatic arthritis (Primary Dx); Psoriasis; Methotrexate, terminal superintendent, current use; Primary osteoarthritis involving multiple joints; Immunosuppression due to drug therapy from Last 3 Months Family History Medical [...] Sign Reading Time Taken Comments Blood Pressure 116/64 01/23/2025 12:54 PM EDT Pulse 94 01/23/2025 12:54 PM EDT Temperature - - Respiratory Rate - - Oxygen Saturation 96% 01/23/2025 12: 54 PM EDT Inhaled Oxygen Concentration - - Weight 115.1 kg (253 lb 12.8 oz) 2024 12:54 PM EDT Height 170.2 cm (5' 7 ) 10/21/2023 10:5 3 AM EDT Body Mass Index 39.75 10/21/2023 10:53 AM EDT Plan of Treatment Health Maintenance Due Date Last Done Comments [...] ABDOMINAL AORTIC ANEURYSM (A AA) SCREENING 2022 INFLUENZA VACCINE (#1) 2024 CREATININE LEVEL 10/19/2025 10/19/2024 SMOKING Hx and SMOKELESS TOB ACCO SCREENING 01/23/2026 01/23/2025 HEPATITIS A VACCINES Aged Out No long [...] Procedure Name Priority Date/Time Associated Diagnosis Comments COMPREHENSIVE METABOLIC PANEL Routine 10/19/2024 5:21 PM EDT Psoriatic arthritis Methotrexate, terminal superintendent, current use from Last 3 Months or Most Recently Relevant to Health Maintenance Results * Comprehensive metabolic panel (10/19/2024 5:21 PM EDT) Blood us Claudia Nguyen MD LAB BLOOD ORDERABLES Final Res ult EXTERNAL NON-INTERFACED REF LAB from Last 3 Months or Most Recently Relevant to Health Maintenance Insurance MEDICARE PART A & B Member Subscriber Plan / Payer (Ef fective 2022-Present) Name:Dmitry Auguste Member ID:[id number] Relation to Subscriber:Self Name:Dmitry Auguste Subscriber ID:[id number] Payer ID:[id number] Group ID:Not on file Type:Medicare Address: [facility] [employer] [facility] [address] [place] [address] [place] [phone] [facility] MEDICARE SUPPLEMENT MEDICARE PART A & [place] [address] MEDICARE SUPPLEMENT MEDICARE PART A & B [facility] MEDICARE SUPPLEMENT MEDICARE PART A & B [facility] MEDICARE SUPPLEMENT MEDICARE PART A & B [facility] MEDICARE SUPPLEMENT MEDICARE PART A & B [facility] MEDICARE SUPPLEMENT Care Teams Planer Stone Relationship Specialty Start Date End Date Sita Cisneros MD PCP - General Internal Medicine 12/22/22 Additional Source Comments The information contained in this document represents components of the legal health record. It is not the complete legal health record.[facility]
== END ==
LOC: HO.HMCFM 15:43
PROVIDERS: PCP Internal Medicine; Visit Provider Internal Medicine
DX: R59.0 Localized enlarged lymph nodes (principal)

== ENCOUNTER 2025-03-15 13:05 | Outpatient (REF) | payer MEDICARE, SELFPAY ==
[2025-03-15 14:22] LABS: MANUAL DIFF FLAG NO
[2025-03-15 14:35] LABS: Hematocrit 38.0 % (42.0-52.0); Hemoglobin 12.1 g/dl (14.0-18.0); Imm Gran Abs Auto 0.01 X10*3/uL (0.00-0.03); Imm Gran Pct Auto 0.2 % (0.0-0.4); Lymphocytes Absolute Auto 0.7 X10*3/uL (1.2-4.9); Mean Corpuscular HGB Conc 31.8 g/dl (31.0-36.0); Mean Corpuscular Hemoglobin 30.5 pg (27.0-33.0); Mean Corpuscular Volume 95.7 fL (80.0-98.0); NRBC Abs Auto 0.000 X10*3/uL (0.0-0.012); NRBC Pct Auto 0.0 /100WBC (0.0-0.2); Platelet Count 294 X10*3/uL (160-400); Red Blood Count 3.97 X10*6/uL (4.60-5.80); White Blood Count 6.2 X10*3/uL (4.8-10.8)
[2025-03-15 14:53] LABS: Alanine Aminotransferase 35 U/L (0-40); Albumin Level 4.1 g/dL (3.5-5.0); Alkaline Phosphatase 58 U/L (39-117); Anion Gap 10 (12-20); Aspartate Amino Transferase 29 U/L (5-37); Blood Urea Nitrogen 13 mg/dL (9-16); Calcium 9.0 mg/dL (8.4-10.2); Carbon Dioxide 27 mmol/L (22-29); Chloride 108 mmol/L (96-108); Estimated Glomerular Filt Rate > 60; Potassium 4.2 mmol/L (3.3-5.1); Sodium 141 mmol/L (135-145); Total Protein 7.0 g/dL (6.5-8.0)
[2025-03-15 14:54] LABS: Cholesterol 227 mg/dL (<200); HDL Cholesterol 34 mg/dL (>40); Triglycerides 158 mg/dL (<150)
--- OUTSIDE RECORDS SUMMARY | 2025-03-15 16:00 | XMS_ITS | Encounter Summary ---
Author Organization [facility] Address [address] [facility] [address] [place] [address] Phone Care Team Providers Care Manager Heavy Equipment Name Role Phone Sita Cisneros MD Primary Care Provider + [phone] Reason for Visit * Reason Comments Med Change Request Encounter Details Date Type Department Care Team ([facility] st Contact Info) Description 03/12/2025 Refill [facility] Rheumatology [address] [place] [address] Claudia Nguyen MD [address] [place] [address] Med Change Request Social History Tobacco Use Types Packs/Day Years [...] as of this encounter Progress Notes * aKrmen Harris CMA - 03/12/2025 2:50 PM EDT I spoke with patient follow up scheduled for 04/19/[address] Delgadillo. He has a hard copy of lab orders going [place] [facility] [place]. Has enough med for this week. documented in this encounter Plan of Treatment Upcoming Encounters Date Type Department Care Team (Late st Contact Info) Description 04/19/2025 2:00 PM EST Office Visit [facility] Rheumatology [address] [place] [address] Tiffanie Delgadillo MD [address] [facility], [address] [place] [address] [email or web address] documented as of this encounter Visit Diagnoses Diagnosis Psoriatic arthritis Psoriatic arthropathy documented in this encounter Care Teams Manager Heavy Equipment Relationship Specialty Start Date End Date Sita Cisneros MD PCP - General Internal Medicine 12/22/22 documented as of this encounter Additional Source Comments The information contained in this document represents components of the legal health record. It is not the complete legal health record.[facility]
--- OUTSIDE RECORDS SUMMARY | 2025-03-15 16:00 | XMS_ITS | Clinical Summary ---
Author Organization [facility] Address [address] [address] Phone Care Team Providers Care Beer Cooler Name Role Phone Sita Cisneros MD Primary Care Provider [phone] Allergies No known active allergies Medications lisinopril [...] a week. 130 tablet 1 5 Active Active Problems Problem Noted Date [...] had blood work drawn this morning at [facility] which we will try and retrieve. Assessment & Plan (03/10/2023 1:13 PM EDT): Psoriatic arthritis not optimally controlled with chronic active synovitis, swelling and plaque psoriasis. He wants to continue only with methotrexate and folic acid. He does not want to take a biologic medication. Sent him for baseline labs which he will do at [facility]. Primary osteoarthritis involving multiple joints 02/23/2023 Assessment [...] Encounters Date Type Department Care Team Description 03/12/2025 Refill [facility] Rheumatology [address] [place] [address] [place] [address] Claudia Nguyen MD Med Change Request 01/25/2025 Telephone [facility] Rheumatology [address] [place] [address] [place] [address] Unknown, Unknown, MD Appointment 01/23/2025 1:00 PM EDT Office Visit [facility] Rheumatology [address] [place] [address] [place] [address] Claudia Nguyen MD Psoriatic arthritis (Primary Dx); Psoriasis; Methotrexate, snf, current use; Primary osteoarthritis involving multiple joints; [...] Description 04/19/2025 2:00 PM EST Office Visit [facility] Rheumatology [address] [place] [address] Tiffanie Delgadillo MD [address] [facility], [address] [place] [address] Health Maintenance Due Date Last Done Comments [...] COLONOSCOPY 2002 RSV VACCINE (1 - Risk 50-74 years 1-dose series) 08/12/2007 ABDOMINAL AORTIC ANEURYSM (A AA) SCREENING 2022 [...] 10/19/2024 5:21 PM EDT Psoriatic arthritis Methotrexate, cylinder inspector, current use from Last 3 Months or Most Recently Relevant to Health Maintenance Results * Comprehensive metabolic panel (10/19/2024 5:21 PM EDT) Blood us Claudia Nguyen MD LAB BLOOD ORDERABLES Final Res ult EXTERNAL NON-INTERFACED REF LAB from Last 3 Months or Most Recently Relevant to Health Maintenance Insurance MEDICARE PART A & B [facility] MEDICARE SUPPLEMENT MEDICARE PART A & B [facility] MEDICARE SUPPLEMENT MEDICARE PART A & B [facility] MEDICARE SUPPLEMENT MEDICARE PART A & B [facility] MEDICARE SUPPLEMENT MEDICARE PART A & B [id number] [place] [address] MEDICARE SUPPLEMENT MEDICARE PART A & B [facility] MEDICARE SUPPLEMENT Care Teams Beer Cooler Relationship Specialty Start Date End Date Sita Cisneros MD PCP - General Internal Medicine 12/22/22 Additional Source Comments The information contained in this document represents components of the legal health record. It is not the complete legal health record.[facility]
== END 2025-03-15 13:06 | disposition home or self-care (01) ==
LOC: HO.WFDLDS 13:05
PROVIDERS: Referring Provider Internal Medicine Rheumatology; Visit Provider Internal Medicine
DX: R59.0 Localized enlarged lymph nodes (principal); L40.50 Arthropathic psoriasis, unspecified; E78.5 Hyperlipidemia, unspecified
CPT/HCPCS: 36415; 80053; 80061; 85025; 85652; 86140